=== PATIENT | male | born 1990 | race African-American/Black ===

== ENCOUNTER → 2017-07-21 | Outpatient (CLI) | payer OTHER ==
--- NOTE | 2017-07-21 17:49 | Diagnostic Imaging Report ---
PROCEDURE:X-RAY RIGHT FOOT, COMPLETE COMPARISON:None. INDICATIONS:BASKETBALL INJURY FINDINGS: Normal mineralization. There are no acute, displaced fractures, dislocations, lytic or blastic lesions. The bones are well-joint spaces are preserved. Small anterior calcaneal enthesophyte. The soft-tissues are unremarkable. CONCLUSION: No acute abnormalities. Tino Garcia M.D. Dictated by: Tino Garcia M.D. on 07/21/2017 at 17:50 Electronically approved by: Tino Garcia M.D. on 07/21/2017 at 17:50
--- NOTE | 2017-07-21 17:51 | Diagnostic Imaging Report ---
PROCEDURE:X-RAY RIGHT ANKLE, COMPLETE INDICATION:Basketball injury. COMPARISON:None. FINDINGS: Normal mineralization. No acute displaced fracture or dislocation. No lytic or blastic lesions. Ankle mortise is preserved. Linear calcific density projecting inferior to the medial malleolus may represent ligamentous calcification. Mild to moderate soft tissue swelling surrounding the ankle. CONCLUSION: Mild to moderate soft tissue swelling surrounding the ankle. No acute displaced fracture or dislocation. Linear calcific density projecting inferior to the medial malleolus may reflect ligamentous calcification. This may represent sequela of prior injury. Tino Garcia M.D. Dictated by: Tino Garcia M.D. on 07/21/2017 at 17:53 Electronically approved by: Tino Garcia M.D. on 07/21/2017 at 17:53
== END ==
LOC: RAD 16:04
PROVIDERS: ATTEND Internal Medicine
DX: M25.571 Pain in right ankle and joints of right foot (principal); M25.471 Effusion, right ankle; M25.474 Effusion, right foot; T14.90XA Injury, unspecified, initial encounter